=== PATIENT | male | born 1970 | race Caucasian/White ===

== ENCOUNTER 2021-12-29 13:45 | Observation (INO) ==
--- NOTE | 2021-12-29 13:59 | ED.PDOC ---
General ED Provider: Dr. URBAN HARTMANN Chief Complaint: Non-specific Complaint Stated Complaint: He was living on the streets in [place] for 3 mos . [place] [facility] ws [place] and went to a senior living. Thursday began riding a bicycle from [facility] to [place], [place] to suprise visit his son and grandson. His bike broke down . He then had to walk . He had to lay down due to the heat and fatigue and a passer- by called the police who called EMS . He has a remote hx of a blood clot to his [id number], Left fem stent 2020 . He has no medications and allergy to nicoderm Time Seen by Provider: 12/29/21 13:59 Mode of Arrival: Ambulance Information Source: Patient and EMT Exam Limitations: Other (no medical records available ) Nursing and Triage Documentation Reviewed and Agree: Yes Does patient meet sepsis criteria?: No System Inflammatory Response Syndrome: Not Applicable Sepsis Protocol: For patient's 13 years and over: Temp is 96.8 and below OR 101 and greater Pulse >90 BPM Resp >20/minute Acutely Altered Mental Status Are patient's symptoms suggestive of a new infection, such as: -Pneumonia -Skin, Soft Tissue -Endocarditis -UTI -Bone, Joint Infection -Implantable Device -Acute Abdominal Infection -Wound Infection -Meningitis -Blood Stream Catheter Infection -Unknown Review of Systems Review Of Systems Constitutional: Reports No symptoms Eyes: Reports No symptoms Ears, Nose, Mouth, Throat: Reports No symptoms Respiratory: Reports No symptoms Cardiac: Reports No symptoms GI: Reports No symptoms : Reports No symptoms Musculoskeletal: Reports Muscle pain Skin: Reports No symptoms Neurological: Reports Emotional problems Endocrine: Reports No symptoms Hematologic/Lymphatic: Reports No symptoms All Other Systems: Reviewed and Negative [facility] Medical History (Updated 12/29/21 @ 21:06 by URBAN HARTMANN) Disintegration of vascular stent Heart disease Hypercholesteremia Hyperglycemia, unspecified Pre-diabetes Family History (Updated 12/29/21 @ 18:26 by DEVIN MURCIA, RN) Mother Diabetes Social History (Updated 12/29/21 @ 18:28 by DEVIN MURCIA, RN) Smoking and tobacco status: Current every day smoker Tobacco type: cigarettes Smoking packs per day: 1 Smoking cigarettes per day: 20.0 Years smoked: 42 Smoking pack-years: 42.00 Tobacco: How many years used: 42 Quit status: has quit before Alcohol intake: never Physical Exam Physical Exam Appearance: Reports Ill-appearing and Thin Ill-appearing: Mild Pain Distress: None Eyes: Reports ANNEMARIE, EOMI and Conjunctiva clear ENT: Reports Ears normal, Nose normal and Dry mucosa Neck: Supple Respiratory: Reports Airway patent, Breath sounds clear and Breath sounds equal Cardiovascular: Reports RRR and No murmur GI/: Reports Soft and Nontender Musculoskeletal: Reports Normal strength, ROM intact and No calf tenderness; Denies Edema Skin: Reports Warm, Dry and Normal color; Denies Diaphoretic Neurological: Reports Sensation intact, Motor intact, Alert and Oriented Psychiatric: Reports Affect appropriate, Mood appropriate and Other (Denies SI or HI); Denies Depressed Interpretation EKG Interpretation Time of EKG #1: 15:00 Rate: Normal Rhythm: Sinus Ectopy: None [place]: [place] ST Segment: Normal Critical Care Note Critical Care Note Total Critical Care Time (mins): 20 Comments: repeat assessments of patient renal output , prior hx , phone call, lit review, fluids, review results , re- order to access response to treatment , place in observation Course Course Hematology/Chemistry: 12/29/21 15:14 12/29/21 18:07 Orders, Labs, Meds: Lab Review 12/29/21 12/29/21 12/29/21 15:14 15:14 16:53 WBC 10.06 RBC 4.84 Hgb 14.7 Hct 43.4 MCV 89.7 MCH 30.4 MCHC 33.9 RDW Coeff of Onesimo 13.4 Plt Count 202 Immature Gran % (Auto) 0.4 Neut % (Auto) 77.4 H Lymph % (Auto) 13.8 [place] % (Auto) 7.2 Eos % (Auto) 0.7 Baso % (Auto) 0.5 Neut # (Auto) 7.8 H Lymph # (Auto) 1.4 [place] # (Auto) 0.7 Eos # (Auto) 0.1 Baso # (Auto) 0.1 Immature Gran # (Auto) 0.0 Sodium 134.2 L Potassium 4.35 Chloride 100.3 Carbon Dioxide 24.3 Anion Gap 13.95 BUN 39.2 H Creatinine 1.69 H Estimated GFR (MDRD) 43.00 BUN/Creatinine Ratio 23.19 Glucose 152.6 H Calcium 9.64 Total Bilirubin 0.89 AST 54.7 ALT 27.9 Alkaline Phosphatase 85.8 Total Creatine Kinase 1314.3 H CK-MB (CK-2) 17.500 H* CK-MB (CK-2) % 1.3300 Troponin I < 0.012 Total Protein 8.47 H Albumin 4.76 Globulin 3.71 Albumin/Globulin Ratio 1.28 Urine Color Urine Clarity Urine pH Ur Specific [place] Urine Protein Urine Glucose (UA) Urine Ketones Urine Blood Urine Nitrite Urine Bilirubin Urine Urobilinogen Ur Leukocyte Esterase Urine Microscopic RBC Urine Microscopic WBC Ur Squamous Epith Cells Urine Bacteria Hyaline Casts Urine Mucus Urine Opiates Screen Ur Oxycodone Screen Urine Methadone Screen Ur Propoxyphene Screen Ur Barbiturates Screen U Tricyclic Antidepress Ur Phencyclidine Scrn Ur Amphetamine Screen U Methamphetamines Scrn U Benzodiazepines Scrn Urine Cocaine Screen U Cannabinoids Screen SARS CoV-2 RNA Rapid SHANNON Negative 12/29/21 12/29/21 16:58 16:58 WBC RBC Hgb Hct MCV MCH MCHC RDW Coeff of Onesimo Plt Count Immature Gran % (Auto) Neut % (Auto) Lymph % (Auto) [place] % (Auto) Eos % (Auto) Baso % (Auto) Neut # (Auto) Lymph # (Auto) [place] # (Auto) Eos # (Auto) Baso # (Auto) Immature Gran # (Auto) Sodium Potassium Chloride Carbon Dioxide Anion Gap BUN Creatinine Estimated GFR (MDRD) BUN/Creatinine Ratio Glucose Calcium Total Bilirubin AST ALT Alkaline Phosphatase Total Creatine Kinase CK-MB (CK-2) CK-MB (CK-2) % Troponin I Total Protein Albumin Globulin Albumin/Globulin Ratio Urine Color Yellow Urine Clarity Clear Urine pH 5.5 Ur Specific [place] 1.020 Urine Protein Trace H Urine Glucose (UA) Negative Urine Ketones Negative Urine Blood Trace-lysed Urine Nitrite Negative Urine Bilirubin Negative Urine Urobilinogen 0.2 Ur Leukocyte Esterase Negative Urine Microscopic RBC 5-10 Urine Microscopic WBC 2-5 Ur Squamous Epith Cells 0-2 Urine Bacteria 1+ Hyaline Casts 10-20 Urine Mucus Trace Urine Opiates Screen Negative Ur Oxycodone Screen Negative Urine Methadone Screen Negative Ur Propoxyphene Screen Negative Ur Barbiturates Screen Negative U Tricyclic Antidepress Negative Ur Phencyclidine Scrn Negative Ur Amphetamine Screen Negative U Methamphetamines Scrn Negative U Benzodiazepines Scrn Negative Urine Cocaine Screen Negative U Cannabinoids Screen Negative SARS CoV-2 RNA Rapid SHANNON Orders Category Date Time Status PLACE PATIENT OBSERVATION .TO MEDSURG (MONITORED BED ADMISSION 12/29/21 17:34 Active ) EKG-(ED ONLY) Stat CARDIO 12/29/21 14:12 Completed EKG-(IP & OP ONLY) DAILY CARDIO 12/30/21 06:00 Ordered EKG-(IP & OP ONLY) DAILY CARDIO 12/31/21 06:00 Ordered ACTIVITY .Up With Assistance CARE 12/29/21 17:39 Active CASE MANAGEMENT CONSULT ONCE CARE 12/29/21 17:37 Active INTAKE & OUTPUT Q4HR CARE 12/29/21 17:34 Active TELEMETRY MONITORING TELE CARE 12/29/21 17:36 Active VITAL SIGNS Q4HR CARE 12/29/21 17:48 Active REGULAR DIET DIETARY 12/29/21 Breakfast Ordered CBC W/ AUTO DIFF DAILY@0600 LAB 12/30/21 06:00 Ordered CBC W/ AUTO DIFF DAILY@0600 LAB 12/31/21 06:00 Ordered CBC W/ AUTO DIFF Stat LAB 12/29/21 15:14 Completed CMP [COMPREHENSIVE METABOLIC PANEL] Stat LAB 12/29/21 15:14 Completed COMPREHENSIVE METABOLIC PANEL DAILY@0600 LAB 12/30/21 06:00 Ordered COMPREHENSIVE METABOLIC PANEL DAILY@0600 LAB 12/31/21 06:00 Ordered COVID [SARS COV-2 RNA RAPID SHANNON] Stat LAB 12/29/21 16:53 Completed CPK [CREATINE KINASE] Stat LAB 12/29/21 15:14 Completed TROPONIN I Stat LAB 12/29/21 15:14 Completed URINALYSIS WITH MICROSCOPIC Stat LAB 12/29/21 16:58 Completed Acetaminophen [Tylenol] MEDS 12/29/21 17:44 Active 650 mg PO Q4H PRN Ringers Lactated Solution [Lactated Ringers] 1,000 ml MEDS 12/29/21 16:58 Discontinued IV BOLUS Ringers Lactated Solution [Lactated Ringers] 1,000 ml MEDS 12/29/21 17:25 Discontinued IV BOLUS Sodium Chloride 0.9% [Sodium Chloride] 1,000 ml MEDS 12/29/21 18:00 Active IV 250 mls/hr Sodium Chloride 0.9% [Sodium Chloride] 1,000 ml MEDS 12/29/21 17:22 Discontinued IV BOLUS Sodium Chloride 0.9% [Sodium Chloride] 1,000 ml MEDS 12/29/21 17:30 Discontinued IV BOLUS RESUSCITATION STATUS Routine OTHERS 12/29/21 17:34 Ordered Medications Generic Name Dose Route Start Last Admin Trade Name Freq PRN Reason Stop Dose Admin Acetaminophen 650 mg 12/29/21 17:44 Acetaminophen 325 Mg Tablet PO Q4H PRN Mild Pain Famotidine 20 mg 12/29/21 21:30 Famotidine 20 Mg Tablet PO QDAC MATEUS Sodium Chloride 1,000 mls @ 250 mls/hr 12/29/21 18:00 12/29/21 18:30 Sodium Chloride IV 250 mls/hr .Q4H MATEUS Administration Discontinued Medications Generic Name Dose Route Start Last Admin Trade Name Freq PRN Reason Stop Dose Admin Lactated Ringer's 1,000 mls @ 500 mls/hr 12/29/21 16:58 12/29/21 17:16 Lactated Ringers IV 12/29/21 18:57 500 mls/hr BOLUS STA Administration Sodium Chloride 1,000 mls @ 500 mls/hr 12/29/21 17:22 12/29/21 17:32 Sodium Chloride IV 12/29/21 19:21 Not Given BOLUS STA Lactated Ringer's 1,000 mls @ 1,000 mls/hr 12/29/21 17:25 12/29/21 17:29 Lactated Ringers IV 12/29/21 17:57 Not Given BOLUS STA Sodium Chloride 1,000 mls @ 1,000 mls/hr 12/29/21 17:30 12/29/21 17:32 Sodium Chloride IV 12/29/21 18:21 1,000 mls/hr BOLUS STA Administration Vital Signs: Temp Pulse Resp BP Pulse Ox 12/29/21 13:46 98.9 F 83 20 107/79 98 Spoke with [facility] hospitalist who recommended we continue to treat here and if failure to improve to call them back 4 hr repeat labs to access for renal response and for admitting here indicated improvement of GFR. Will admit pt here Discharge Plan Discharge Patient Disposition: PLACED OBSERVATION Discharge Problem: Heat exhaustion, Secondary rhabdomyolysis, Acute kidney injury Did you review [place] [employer] ADMINISTRATION TEACHER?: Not Applicable ED Provider: URBAN HARTMANN Condition: Stable Physician Progress Note: []
[2021-12-29 15:20] LABS: BASOPHILS # (AUTO) 0.1 K/uL (0-0.2); BASOPHILS % (AUTO) 0.5 % (0.0-3.0); EOSINOPHILS # (AUTO) 0.1 K/ul (0.0-0.7); EOSINOPHILS % (AUTO) 0.7 % (0.0-7.0); HEMATOCRIT 43.4 % (42.0-52.0); HEMOGLOBIN 14.7 g/dl (14.0-18.0); IMMATURE GRANULOCYTE % (AUTO) 0.4 % (0.0-5.0); LYMPHOCYTES # (AUTO) 1.4 K/uL (0.60-3.4); LYMPHOCYTES % (AUTO) 13.8 (10.0-50.0); MEAN CORPUSCULAR HEMOGLOBIN 30.4 pg (27.0-31.0); MEAN CORPUSCULAR HGB CONC 33.9 (31.8-35.4); MEAN CORPUSCULAR VOLUME 89.7 fl (80.0-94.0); MONOCYTES # (AUTO) 0.7 K/uL (0.4-2.0); MONOCYTES % (AUTO) 7.2 (0-10); NEUTROPHILS # (AUTO) 7.8 K/ul (2.0-6.9); NEUTROPHILS % (AUTO) 77.4 % (42.2-75.2); PLATELET COUNT 202 10^3/uL (140-440); RDW COEFFICIENT OF VARIATION 13.4 % (11.6-14.8); RED BLOOD COUNT 4.84 10^6/ul (4.70-6.10); WHITE BLOOD COUNT 10.06 K/ul (4.2-10.2)
[2021-12-29 15:29] LABS: ALANINE AMINOTRANSFERASE 27.9 U/L (0-50); ALBUMIN 4.76 g/dL (3.5-5.0); ALKALINE PHOSPHATASE 85.8 U/L (38-126); ASPARTATE AMINO TRANSFERASE 54.7 U/L (17-59); BILIRUBIN,TOTAL 0.89 mg/dL (0.2-1.3); BLOOD UREA NITROGEN 39.2 mg/dL (9-20); CALCIUM 9.64 mg/dL (8.4-10.2); CARBON DIOXIDE 24.3 mmol/L (22-30.0); CHLORIDE 100.3 mmol/L (98-107); CREATINE KINASE 1314.3 U/L (55-170); CREATININE 1.69 mg/dL (0.60-1.10); GLUCOSE 152.6 mg/dL (74-106); POTASSIUM 4.35 mmol/L (3.5-5.1); SODIUM 134.2 mmol/L (134.5-145); TOTAL PROTEIN 8.47 g/dL (6.3-8.2)
[2021-12-29 16:10] LABS: TROPONIN I < 0.012 ng/ml (0.0000-0.120)
[2021-12-29] MEDS ORDERED: LACTATED RINGERS 1,000 ML IV STA ×2 (16:58→17:25)
[2021-12-29 17:06] LABS: BILIRUBIN,URINE Negative (NEGATIVE); CLARITY,URINE Clear (CLEAR); COLOR,URINE Yellow (YELLOW); GLUCOSE, URINE (UA) Negative (NEGATIVE); KETONES,URINE Negative (NEGATIVE); LEUKOCYTE ESTERASE ,URINE Negative (NEGATIVE); NITRITE,URINE Negative (NEGATIVE); PH,URINE 5.5 (5-9); PROTEIN,URINE Trace (NEGATIVE); URINE, BLOOD Trace-lysed (NEGATIVE); UROBILINOGEN,URINE 0.2 (0.2)
[2021-12-29 17:21] LABS: BACTERIA,URINE 1+ (NOT PRESENT); MUCUS,URINE TRACE (NOT PRESENT); SQUAMOUS EPITHELIAL CELL,UR 0-2 (0-5)
[2021-12-29] MEDS ORDERED: SODIUM CHLORIDE 1,000 ML IV STA ×2 (17:22→17:30)
[2021-12-29] MEDS ORDERED: TYLENOL PO PRN (17:44)
[2021-12-29 18:22] LABS: BLOOD UREA NITROGEN 35.4 mg/dL (9-20); CALCIUM 8.94 mg/dL (8.4-10.2); CARBON DIOXIDE 24.8 mmol/L (22-30.0); CHLORIDE 103.9 mmol/L (98-107); CREATININE 1.26 mg/dL (0.60-1.10); GLUCOSE 111.5 mg/dL (74-106); MAGNESIUM 2.21 mg/dL (1.6-2.3); PHOSPHORUS 4.24 mg/dL (2.5-4.5); POTASSIUM 4.38 mmol/L (3.5-5.1); SODIUM 134.6 mmol/L (134.5-145); URIC ACID 6.19 mg/dL (3.5-8.5)
[2021-12-29 18:25] LABS: PARTIAL THROMBOPLASTIN TIME 22.1 SEC (23.9-40.0); PROTHROMBIN TIME 9.9 SEC (9.3-11.0)
[2021-12-29] MEDS: SODIUM CHLORIDE 1,000 ML IV SCH ×2 (18:30→22:12)
[2021-12-29 18:35] LABS: TROPONIN I < 0.012 ng/ml (0.0000-0.120)
[2021-12-29 18:36] VITALS: BMI 20.4
[2021-12-29 20:29] LABS: AMPHETAMINE SCREEN,URINE NEGATIVE (NEGATIVE); BARBITURATE SCREEN,URINE NEGATIVE (NEGATIVE); BENZODIAZEPINES SCREEN,URINE NEGATIVE (NEGATIVE); CANNABINOID SCREEN,URINE NEGATIVE (NEGATIVE); COCAIN SCREEN,URINE NEGATIVE (NEGATIVE); METHADONE URINE SCREEN NEGATIVE (NEGATIVE); METHAMPHETAMINES SCREEN,URINE NEGATIVE (NEGATIVE); OPIATE SCREEN,URINE NEGATIVE (NEGATIVE); OXYCODONE URINE SCREEN NEGATIVE (NEGATIVE); PHENCYCLIDINE SCREEN,URINE NEGATIVE (NEGATIVE); PROPOXYPHENE URINE SCREEN NEGATIVE (NEGATIVE); TRICYCLIC ANTIDEPRESSANTS URIN NEGATIVE (NEGATIVE)
--- NOTE | 2021-12-29 20:47 | PCM ---
Chief Complaint Chief Complaint: weak from riding bike since Thursday from [facility] to here on way to [place], [place] to see his son and granddaughter History of Present Illness History of Present Illness: For several months [place]living on street in [facility]. Ended up recently in BH facility in [facility] for depression and suicidal ideation. Following discharge wnt to a homeless usp. From there he started ridng his bicycle to [place] till the bike broke down. He then proceeded to walk about 2 hours till he had to lay down. A local flatbed driver callthe police who called EMS and he was brought here. On arrival he was alert and orientd . IV fluids had been started Allergies Allergies Allergy/AdvReac Type Severity Reaction Status Date / Time nicotine [From [facility]] AdvReac Rash Verified 12/29/21 18:38 [facility] Medical History (Updated 12/29/21 @ 21:06 by URBAN HARTMANN) Disintegration of vascular stent Heart disease Hypercholesteremia Hyperglycemia, unspecified Pre-diabetes Family History (Updated 12/29/21 @ 18:26 by DEVIN MURCIA, RN) Mother Diabetes Social History (Updated 12/29/21 @ 18:28 by DEVIN MURCIA, RN) Smoking and tobacco status: Current every day smoker Tobacco type: cigarettes Smoking packs per day: 1 Smoking cigarettes per day: 20.0 Years smoked: 42 Smoking pack-years: 42.00 Tobacco: How many years used: 42 Quit status: has quit before Alcohol intake: never Medications Medications: Medications Generic Name Dose Route Start Last Admin Trade Name Freq PRN Reason Stop Dose Admin Acetaminophen 650 mg 12/29/21 17:44 Acetaminophen 325 Mg Tablet PO Q4H PRN Mild Pain Sodium Chloride 1,000 mls @ 250 mls/hr 12/29/21 18:00 12/29/21 18:30 Sodium Chloride IV 250 mls/hr .Q4H MATEUS Administration Body Composition Height: 5 ft 9 in Weight: 138 lb 4 oz Body Mass Index (BMI): 20.4 Vital Signs Temperature: 97.9 F Pulse Rate: 66 Respiratory Rate: 18 Blood Pressure: 107/79 O2 Sat by Pulse Oximetry: 98 Physical Examination Appearance: Reports Ill-appearing and Thin Ill-appearing: Mild Pain Distress: None Eyes: Reports ANNEMARIE, EOMI and Conjunctiva clear ENT: Reports Ears normal, Nose normal and Dry mucosa Neck: Supple Respiratory: Reports Airway patent, Breath sounds clear and Breath sounds equal Cardiovascular: Reports RRR and No murmur GI/: Reports Soft, Nontender and No Organomegaly Musculoskeletal: Reports Normal strength, ROM intact and No calf tenderness; Denies Edema Skin: Reports Warm, Dry and Normal color; Denies Diaphoretic or Cyanotic Neurological: Reports Sensation intact, Motor intact, Alert and Oriented Psychiatric: Reports Affect appropriate, Mood appropriate and Other (denies SI or depression affecting him ) Lab/Tests/Diagnostic Imaging Lab/Tests/Diagnostic Imaging: Lab Review 12/29/21 12/29/21 12/29/21 15:14 15:14 16:53 WBC 10.06 RBC 4.84 Hgb 14.7 Hct 43.4 MCV 89.7 MCH 30.4 MCHC 33.9 RDW Coeff of Onesimo 13.4 Plt Count 202 Immature Gran % (Auto) 0.4 Neut % (Auto) 77.4 H Lymph % (Auto) 13.8 [place] % (Auto) 7.2 Eos % (Auto) 0.7 Baso % (Auto) 0.5 Neut # (Auto) 7.8 H Lymph # (Auto) 1.4 [place] # (Auto) 0.7 Eos # (Auto) 0.1 Baso # (Auto) 0.1 Immature Gran # (Auto) 0.0 PT INR APTT Sodium 134.2 L Potassium 4.35 Chloride 100.3 Carbon Dioxide 24.3 Anion Gap 13.95 BUN 39.2 H Creatinine 1.69 H Estimated GFR (MDRD) 43.00 BUN/Creatinine Ratio 23.19 Glucose 152.6 H Uric Acid Calcium 9.64 Phosphorus Magnesium Total Bilirubin 0.89 AST 54.7 ALT 27.9 Alkaline Phosphatase 85.8 Total Creatine Kinase 1314.3 H CK-MB (CK-2) 17.500 H* CK-MB (CK-2) % 1.3300 Troponin I < 0.012 Total Protein 8.47 H Albumin 4.76 Globulin 3.71 Albumin/Globulin Ratio 1.28 TSH Free T4 Urine Color Urine Clarity Urine pH Ur Specific [place] Urine Protein Urine Glucose (UA) Urine Ketones Urine Blood Urine Nitrite Urine Bilirubin Urine Urobilinogen Ur Leukocyte Esterase Urine Microscopic RBC Urine Microscopic WBC Ur Squamous Epith Cells Urine Bacteria Hyaline Casts Urine Mucus Urine Opiates Screen Ur Oxycodone Screen Urine Methadone Screen Ur Propoxyphene Screen Ur Barbiturates Screen U Tricyclic Antidepress Ur Phencyclidine Scrn Ur Amphetamine Screen U Methamphetamines Scrn U Benzodiazepines Scrn Urine Cocaine Screen U Cannabinoids Screen SARS CoV-2 RNA Rapid SHANNON Negative 12/29/21 12/29/21 12/29/21 16:58 16:58 18:07 WBC RBC Hgb Hct MCV MCH MCHC RDW Coeff of Onesimo Plt Count Immature Gran % (Auto) Neut % (Auto) Lymph % (Auto) [place] % (Auto) Eos % (Auto) Baso % (Auto) Neut # (Auto) Lymph # (Auto) [place] # (Auto) Eos # (Auto) Baso # (Auto) Immature Gran # (Auto) PT 9.9 INR 0.95 APTT 22.1 L Sodium Potassium Chloride Carbon Dioxide Anion Gap BUN Creatinine Estimated GFR (MDRD) BUN/Creatinine Ratio Glucose Uric Acid Calcium Phosphorus Magnesium Total Bilirubin AST ALT Alkaline Phosphatase Total Creatine Kinase CK-MB (CK-2) CK-MB (CK-2) % Troponin I Total Protein Albumin Globulin Albumin/Globulin Ratio TSH Free T4 Urine Color Yellow Urine Clarity Clear Urine pH 5.5 Ur Specific [place] 1.020 Urine Protein Trace H Urine Glucose (UA) Negative Urine Ketones Negative Urine Blood Trace-lysed Urine Nitrite Negative Urine Bilirubin Negative Urine Urobilinogen 0.2 Ur Leukocyte Esterase Negative Urine Microscopic RBC 5-10 Urine Microscopic WBC 2-5 Ur Squamous Epith Cells 0-2 Urine Bacteria 1+ Hyaline Casts 10-20 Urine Mucus Trace Urine Opiates Screen Negative Ur Oxycodone Screen Negative Urine Methadone Screen Negative Ur Propoxyphene Screen Negative Ur Barbiturates Screen Negative U Tricyclic Antidepress Negative Ur Phencyclidine Scrn Negative Ur Amphetamine Screen Negative U Methamphetamines Scrn Negative U Benzodiazepines Scrn Negative Urine Cocaine Screen Negative U Cannabinoids Screen Negative SARS CoV-2 RNA Rapid SHANNON 12/29/21 12/29/21 18:07 18:07 WBC RBC Hgb Hct MCV MCH MCHC RDW Coeff of Onesimo Plt Count Immature Gran % (Auto) Neut % (Auto) Lymph % (Auto) [place] % (Auto) Eos % (Auto) Baso % (Auto) Neut # (Auto) Lymph # (Auto) [place] # (Auto) Eos # (Auto) Baso # (Auto) Immature Gran # (Auto) PT INR APTT Sodium 134.6 Potassium 4.38 Chloride 103.9 Carbon Dioxide 24.8 Anion Gap 10.28 BUN 35.4 H Creatinine 1.26 H Estimated GFR (MDRD) 61.00 BUN/Creatinine Ratio 28.09 Glucose 111.5 H Uric Acid 6.19 Calcium 8.94 Phosphorus 4.24 Magnesium 2.21 Total Bilirubin AST ALT Alkaline Phosphatase Total Creatine Kinase 1097.0 H CK-MB (CK-2) 14.500 H* CK-MB (CK-2) % 1.3200 Troponin I < 0.012 Total Protein Albumin Globulin Albumin/Globulin Ratio TSH 1.140 Free T4 0.92 Urine Color Urine Clarity Urine pH Ur Specific [place] Urine Protein Urine Glucose (UA) Urine Ketones Urine Blood Urine Nitrite Urine Bilirubin Urine Urobilinogen Ur Leukocyte Esterase Urine Microscopic RBC Urine Microscopic WBC Ur Squamous Epith Cells Urine Bacteria Hyaline Casts Urine Mucus Urine Opiates Screen Ur Oxycodone Screen Urine Methadone Screen Ur Propoxyphene Screen Ur Barbiturates Screen U Tricyclic Antidepress Ur Phencyclidine Scrn Ur Amphetamine Screen U Methamphetamines Scrn U Benzodiazepines Scrn Urine Cocaine Screen U Cannabinoids Screen SARS CoV-2 RNA Rapid SHANNON Orders Category Date Time Status PLACE PATIENT OBSERVATION .TO MEDSURG (MONITORED BED ADMISSION 12/29/21 17:34 Active ) EKG-(ED ONLY) Stat CARDIO 12/29/21 14:12 Completed EKG-(IP & OP ONLY) DAILY CARDIO 12/30/21 06:00 Ordered EKG-(IP & OP ONLY) DAILY CARDIO 12/31/21 06:00 Ordered ACTIVITY .Up With Assistance CARE 12/29/21 17:39 Active CASE MANAGEMENT CONSULT ONCE CARE 12/29/21 17:37 Active INTAKE & OUTPUT Q4HR CARE 12/29/21 17:34 Active TELEMETRY MONITORING TELE CARE 12/29/21 17:36 Active VITAL SIGNS Q4HR CARE 12/29/21 17:48 Active REGULAR DIET DIETARY 12/29/21 Breakfast Ordered BMP [BASIC METABOLIC PANEL] Stat LAB 12/29/21 18:07 Completed CBC W/ AUTO DIFF DAILY@0600 LAB 12/30/21 06:00 Ordered CBC W/ AUTO DIFF DAILY@0600 LAB 12/31/21 06:00 Ordered CBC W/ AUTO DIFF Stat LAB 12/29/21 15:14 Completed CMP [COMPREHENSIVE METABOLIC PANEL] Stat LAB 12/29/21 15:14 Completed COMPREHENSIVE METABOLIC PANEL DAILY@0600 LAB 12/30/21 06:00 Ordered COMPREHENSIVE METABOLIC PANEL DAILY@0600 LAB 12/31/21 06:00 Ordered COVID [SARS COV-2 RNA RAPID SHANNON] Stat LAB 12/29/21 16:53 Completed CPK [CREATINE KINASE] Stat LAB 12/29/21 15:14 Completed CPK [CREATINE KINASE] Stat LAB 12/29/21 18:07 Completed FREE T4 (FREE THYROXINE) Stat LAB 12/29/21 18:07 Completed MAGNESIUM Stat LAB 12/29/21 18:07 Completed PHOSPHORUS Stat LAB 12/29/21 18:07 Completed PT WITH INR Stat LAB 12/29/21 18:07 Completed PTT [PARTIAL THROMBOPLASTIN TIME] Stat LAB 12/29/21 18:07 Completed TROPONIN I Stat LAB 12/29/21 15:14 Completed TROPONIN I Stat LAB 12/29/21 18:07 Completed TSH [THYROID STIMULATING HORMONE] Stat LAB 12/29/21 18:07 Completed URIC ACID Stat LAB 12/29/21 18:07 Completed URINALYSIS WITH MICROSCOPIC Stat LAB 12/29/21 16:58 Completed URINE DRUG SCREEN (RAPID FOR ED) [DRUG SCREEN, URINE, LAB 12/29/21 20:15 Ordered RAPID] Stat Acetaminophen [Tylenol] MEDS 12/29/21 17:44 Active 650 mg PO Q4H PRN Ringers Lactated Solution [Lactated Ringers] 1,000 ml MEDS 12/29/21 16:58 Discontinued IV BOLUS Ringers Lactated Solution [Lactated Ringers] 1,000 ml MEDS 12/29/21 17:25 Discontinued IV BOLUS Sodium Chloride 0.9% [Sodium Chloride] 1,000 ml MEDS 12/29/21 18:00 Active IV 250 mls/hr Sodium Chloride 0.9% [Sodium Chloride] 1,000 ml MEDS 12/29/21 17:22 Discontinued IV BOLUS Sodium Chloride 0.9% [Sodium Chloride] 1,000 ml MEDS 12/29/21 17:30 Discontinued IV BOLUS RESUSCITATION STATUS Routine OTHERS 12/29/21 17:34 Ordered Medications Generic Name Dose Route Start Last Admin Trade Name Freq PRN Reason Stop Dose Admin Acetaminophen 650 mg 12/29/21 17:44 Acetaminophen 325 Mg Tablet PO Q4H PRN Mild Pain Sodium Chloride 1,000 mls @ 250 mls/hr 12/29/21 18:00 12/29/21 18:30 Sodium Chloride IV 250 mls/hr .Q4H MATEUS Administration Discontinued Medications Generic Name Dose Route Start Last Admin Trade Name Steff PRN Reason Stop Dose Admin Lactated Ringer's 1,000 mls @ 500 mls/hr 12/29/21 16:58 12/29/21 17:16 Lactated Ringers IV 12/29/21 18:57 500 mls/hr BOLUS STA Administration Sodium Chloride 1,000 mls @ 500 mls/hr 12/29/21 17:22 12/29/21 17:32 Sodium Chloride IV 12/29/21 19:21 Not Given BOLUS STA Lactated Ringer's 1,000 mls @ 1,000 mls/hr 12/29/21 17:25 12/29/21 17:29 Lactated Ringers IV 12/29/21 17:57 Not Given BOLUS STA Sodium Chloride 1,000 mls @ 1,000 mls/hr 12/29/21 17:30 12/29/21 17:32 Sodium Chloride IV 12/29/21 18:21 1,000 mls/hr BOLUS STA Administration Assessment (1) Heat exhaustion: Status: Acute Code(s): T67.5XXA - Heat exhaustion, unspecified, initial encounter SNOMED Code(s): 38049282 (2) Secondary rhabdomyolysis: Status: Acute Code(s): M62.82 - Rhabdomyolysis SNOMED Code(s): 910586205 (3) Acute kidney injury: Status: Acute Code(s): N17.9 - Acute kidney failure, unspecified SNOMED Code(s): 34021044 (4) Hyperglycemia, unspecified: Status: Acute Code(s): R73.9 - Hyperglycemia, unspecified SNOMED Code(s): 28340937 Plan Plan: 1. Admit to observation - pt agrees repeat labs are pending 2.For heat exposure / exhaustion - IV fluids , rest 3.For Rhabdomyolysis - IVF ,follow labs 4.For SIRISHA - IVF , follow labs, Dr Dale will adjust IVF , AM labs 5.DVT prevention - Dr Dale will order heparin SQ 6.Homeless person - field services analyst / case management consult 7 For GI - famotidine 20 mg po daily 8.For hyperglycemia - Dr Dale will address [facility] Medical History (Updated 12/29/21 @ 21:06 by URBAN HARTMANN) Disintegration of vascular stent Heart disease Hypercholesteremia Hyperglycemia, unspecified Pre-diabetes Family History (Updated 12/29/21 @ 18:26 by DEVIN MURCIA, RN) Mother Diabetes Social History (Updated 12/29/21 @ 18:28 by DEVIN MURCIA, RN) Smoking and tobacco status: Current every day smoker Tobacco type: cigarettes Smoking packs per day: 1 Smoking cigarettes per day: 20.0 Years smoked: 42 Smoking pack-years: 42.00 Tobacco: How many years used: 42 Quit status: has quit before Alcohol intake: never Additional Medical History: 2019 had clots in his right kidney placed on heparin drip later discharged maybe was to be on blood thinners but not on them since
[2021-12-29] MEDS: PEPCID PO SCH (22:00)
[2021-12-30] MEDS: SODIUM CHLORIDE 1,000 ML IV SCH ×4 (02:11→18:44)
[2021-12-30 05:11] LABS: BASOPHILS # (AUTO) 0.1 K/uL (0-0.2); BASOPHILS % (AUTO) 0.8 % (0.0-3.0); EOSINOPHILS # (AUTO) 0.3 K/ul (0.0-0.7); EOSINOPHILS % (AUTO) 3.9 % (0.0-7.0); HEMATOCRIT 32.8 % (42.0-52.0); HEMOGLOBIN 11.1 g/dl (14.0-18.0); IMMATURE GRANULOCYTE % (AUTO) 0.2 % (0.0-5.0); LYMPHOCYTES # (AUTO) 2.4 K/uL (0.60-3.4); LYMPHOCYTES % (AUTO) 37.3 (10.0-50.0); MEAN CORPUSCULAR HEMOGLOBIN 30.7 pg (27.0-31.0); MEAN CORPUSCULAR HGB CONC 33.8 (31.8-35.4); MEAN CORPUSCULAR VOLUME 90.6 fl (80.0-94.0); MONOCYTES # (AUTO) 0.7 K/uL (0.4-2.0); MONOCYTES % (AUTO) 10.4 (0-10); NEUTROPHILS % (AUTO) 47.4 % (42.2-75.2); PLATELET COUNT 142 10^3/uL (140-440); RDW COEFFICIENT OF VARIATION 13.5 % (11.6-14.8); RED BLOOD COUNT 3.62 10^6/ul (4.70-6.10); WHITE BLOOD COUNT 6.35 K/ul (4.2-10.2)
[2021-12-30 05:23] LABS: ALANINE AMINOTRANSFERASE 18.9 U/L (0-50); ALBUMIN 3.19 g/dL (3.5-5.0); ALKALINE PHOSPHATASE 59.9 U/L (38-126); ASPARTATE AMINO TRANSFERASE 35.7 U/L (17-59); BILIRUBIN,TOTAL 0.35 mg/dL (0.2-1.3); BLOOD UREA NITROGEN 17.9 mg/dL (9-20); CALCIUM 8.02 mg/dL (8.4-10.2); CARBON DIOXIDE 25.5 mmol/L (22-30.0); CHLORIDE 109.5 mmol/L (98-107); CREATININE 0.8 mg/dL (0.60-1.10); GLUCOSE 91.2 mg/dL (74-106); POTASSIUM 4.34 mmol/L (3.5-5.1); SODIUM 136.5 mmol/L (134.5-145); TOTAL PROTEIN 6.02 g/dL (6.3-8.2)
[2021-12-30] MEDS: PEPCID PO SCH (05:51)
[2021-12-30 07:44] LABS: CREATINE KINASE 875.7 U/L (55-170)
[2021-12-30 08:03] LABS: TROPONIN I < 0.012 ng/ml (0.0000-0.120)
[2021-12-31] MEDS: SODIUM CHLORIDE 1,000 ML IV SCH ×4 (01:08→20:40)
[2021-12-31 05:03] LABS: BASOPHILS # (AUTO) 0.1 K/uL (0-0.2); BASOPHILS % (AUTO) 1.1 % (0.0-3.0); EOSINOPHILS # (AUTO) 0.3 K/ul (0.0-0.7); HEMATOCRIT 34.1 % (42.0-52.0); HEMOGLOBIN 11.4 g/dl (14.0-18.0); IMMATURE GRANULOCYTE % (AUTO) 0.6 % (0.0-5.0); LYMPHOCYTES # (AUTO) 2.3 K/uL (0.60-3.4); LYMPHOCYTES % (AUTO) 42.3 (10.0-50.0); MEAN CORPUSCULAR HEMOGLOBIN 30.5 pg (27.0-31.0); MEAN CORPUSCULAR HGB CONC 33.4 (31.8-35.4); MEAN CORPUSCULAR VOLUME 91.2 fl (80.0-94.0); MONOCYTES # (AUTO) 0.5 K/uL (0.4-2.0); MONOCYTES % (AUTO) 9.1 (0-10); NEUTROPHILS # (AUTO) 2.3 K/ul (2.0-6.9); NEUTROPHILS % (AUTO) 41.9 % (42.2-75.2); PLATELET COUNT 148 10^3/uL (140-440); RDW COEFFICIENT OF VARIATION 13.1 % (11.6-14.8); RED BLOOD COUNT 3.74 10^6/ul (4.70-6.10); WHITE BLOOD COUNT 5.39 K/ul (4.2-10.2)
[2021-12-31 05:16] LABS: ALANINE AMINOTRANSFERASE 30.3 U/L (0-50); ALBUMIN 3.31 g/dL (3.5-5.0); ALKALINE PHOSPHATASE 60.8 U/L (38-126); ASPARTATE AMINO TRANSFERASE 37.9 U/L (17-59); BILIRUBIN,TOTAL 0.44 mg/dL (0.2-1.3); CALCIUM 8.43 mg/dL (8.4-10.2); CARBON DIOXIDE 23.9 mmol/L (22-30.0); CHLORIDE 112.5 mmol/L (98-107); CREATININE 0.73 mg/dL (0.60-1.10); GLUCOSE 87.1 mg/dL (74-106); POTASSIUM 4.37 mmol/L (3.5-5.1); SODIUM 138.8 mmol/L (134.5-145); TOTAL PROTEIN 6.16 g/dL (6.3-8.2)
[2021-12-31] MEDS: PEPCID PO SCH (05:32)
[2021-12-31 05:49] LABS: CREATINE KINASE 507.5 U/L (55-170)
[2021-12-31 06:24] LABS: CREATINE KINASE MB 6.3 ng/ml (0.0-2.38)
--- NOTE | 2021-12-31 06:34 | PCM.PROG ---
Date Seen by Provider: 12/30/21 Time Seen by Provider: 10:00 Subjective: CC - Fatigue, muscle pains. Admit 12/29 with heat exhaustion, acute rhabdo due to extensive travel by bike/foot. Mod. SIRISHA. Homeless. Traveling from [place] to [place] to see family. Has no means of transportation, no money. Hoping to be d/c with a bus ticket courtesy of the hospital. Objective: Vitals: T=97.0 F, P=45, R=16, ZW=680/73, SPO2=95 HEENT: [WNL. Poor dentition.] Neck: [supple] Lungs: [clear] CVS: [RRR] Abdomen: [soft] Extremities: [Intact, no focal pain.] Neurological: [Intact] Skin: [WNL] Lab/Tests/Diagnostic Imaging: [See report.] (1) Heat exhaustion: Status: Acute Code(s): T67.5XXA - Heat exhaustion, unspecified, initial encounter SNOMED Code(s): 36072825 Assessment: This has resolved with rest, IVF, and a temperature controlled environment. (2) Secondary rhabdomyolysis: Status: Acute Code(s): M62.82 - Rhabdomyolysis SNOMED Code(s): 378277003 Assessment: Resolving. CK total 875, coming down. (3) Acute kidney injury: Status: Acute Code(s): N17.9 - Acute kidney failure, unspecified SNOMED Code(s): 27049306 Assessment: Resolving. BUN 13, creat. 0.7 Plan: Continue IVF, daily labs. Should be able to be d/c tomorrow, just need to address some social issues.
--- NOTE | 2021-12-31 15:06 | PCM.PROG ---
Date Seen by Provider: 12/31/21 Time Seen by Provider: 15:03 Subjective: pt improving, wants a bus ticket to [place] Objective: Vitals: T=98.0 F, P=50, R=18, OK=081/75, SPO2=97 HEENT: []conjunctiva clear Neck: []supple Lungs: [] no respiratory distress CVS: [] Abdomen: []nondistended Extremities: []restless left leg for months Neurological: []alert and oriented Skin: []pink Lab/Tests/Diagnostic Imaging: [] ekg nsr 48 no ectopy, cpk 507 (1) Heat exhaustion: Status: Acute Code(s): T67.5XXA - Heat exhaustion, unspecified, initial encounter SNOMED Code(s): 48445563 (2) Secondary rhabdomyolysis: Status: Acute Code(s): M62.82 - Rhabdomyolysis SNOMED Code(s): 337467616 (3) Acute kidney injury: Status: Acute Code(s): N17.9 - Acute kidney failure, unspecified SNOMED Code(s): 01721328 Plan: start requip, continue iv ns 150cc/hr, discharge in the am care to Dr Waggoner at 19:00
[2021-12-31] MEDS ORDERED: REQUIP PO SCH (21:00)
[2022-01-01] MEDS: SODIUM CHLORIDE 1,000 ML IV SCH (03:02)
[2022-01-01 05:07] LABS: BASOPHILS # (AUTO) 0.1 K/uL (0-0.2); BASOPHILS % (AUTO) 1.2 % (0.0-3.0); EOSINOPHILS # (AUTO) 0.4 K/ul (0.0-0.7); EOSINOPHILS % (AUTO) 6.1 % (0.0-7.0); HEMOGLOBIN 11.8 g/dl (14.0-18.0); IMMATURE GRANULOCYTE % (AUTO) 0.3 % (0.0-5.0); LYMPHOCYTES # (AUTO) 2.3 K/uL (0.60-3.4); LYMPHOCYTES % (AUTO) 38.8 (10.0-50.0); MEAN CORPUSCULAR HEMOGLOBIN 30.6 pg (27.0-31.0); MEAN CORPUSCULAR HGB CONC 33.7 (31.8-35.4); MEAN CORPUSCULAR VOLUME 90.7 fl (80.0-94.0); MONOCYTES # (AUTO) 0.6 K/uL (0.4-2.0); MONOCYTES % (AUTO) 9.8 (0-10); NEUTROPHILS # (AUTO) 2.6 K/ul (2.0-6.9); NEUTROPHILS % (AUTO) 43.8 % (42.2-75.2); PLATELET COUNT 159 10^3/uL (140-440); RDW COEFFICIENT OF VARIATION 12.9 % (11.6-14.8); RED BLOOD COUNT 3.86 10^6/ul (4.70-6.10); WHITE BLOOD COUNT 6.03 K/ul (4.2-10.2)
[2022-01-01 05:08] VITALS: BP 143/88; TEMP 97.6
[2022-01-01 05:18] LABS: ALANINE AMINOTRANSFERASE 34.7 U/L (0-50); ALBUMIN 3.5 g/dL (3.5-5.0); ALKALINE PHOSPHATASE 67.5 U/L (38-126); ASPARTATE AMINO TRANSFERASE 32.8 U/L (17-59); BILIRUBIN,TOTAL 0.25 mg/dL (0.2-1.3); BLOOD UREA NITROGEN 12.1 mg/dL (9-20); CALCIUM 8.76 mg/dL (8.4-10.2); CHLORIDE 109.5 mmol/L (98-107); CREATININE 0.82 mg/dL (0.60-1.10); GLUCOSE 93.5 mg/dL (74-106); POTASSIUM 4.23 mmol/L (3.5-5.1); SODIUM 139.4 mmol/L (134.5-145); TOTAL PROTEIN 6.43 g/dL (6.3-8.2)
[2022-01-01] MEDS: PEPCID PO SCH (05:36)
[2022-01-01 07:24] LABS: CREATINE KINASE 261.6 U/L (55-170)
[2022-01-01 07:48] LABS: CREATINE KINASE MB 3.08 ng/ml (0.0-2.38)
--- NOTE | 2022-01-01 09:43 | PCM.DC ---
Final Diagnosis: Rhabdomyolysis - resolved. Acute Kidney Injury - resolved. Heat Exhaustion - resolved. Date of Admit - 12/30/2021 Date of Discharge - 01/01/2022 Physical Exam Appearance: Well-appearing Ill-appearing: None Pain Distress: None ENT: Oropharynx normal Neck: Supple Respiratory: Airway patent and Breath sounds clear Cardiovascular: RRR and Pulses normal GI/: Soft and Nontender Musculoskeletal: Normal strength and ROM intact Skin: Warm and Dry Neurological: Sensation intact, Motor intact and Alert Psychiatric: Affect appropriate and Mood appropriate (1) Heat exhaustion: Status: Acute Code(s): T67.5XXA - Heat exhaustion, unspecified, initial encounter SNOMED Code(s): 92151721 (2) Secondary rhabdomyolysis: Status: Acute Code(s): M62.82 - Rhabdomyolysis SNOMED Code(s): 217452803 (3) Acute kidney injury: Status: Acute Code(s): N17.9 - Acute kidney failure, unspecified SNOMED Code(s): 49760939 Reason for Hospitalization: Acute rhabdo due to muscle injury from extensive travel by foot in the summertime. Prognosis/Condition at Discharge: Good. Medications at Discharge: None Lab/Diagnostics: Laboratory Tests 12/29/21 12/29/21 12/29/21 15:14 15:14 16:53 WBC 10.06 RBC 4.84 Hgb 14.7 Hct 43.4 MCV 89.7 MCH 30.4 MCHC 33.9 RDW Coeff of Ones[place] 13.4 Plt Count 202 Immature Gran % (Auto) 0.4 Neut % (Auto) 77.4 H Lymph % (Auto) 13.8 [place] % (Auto) 7.2 Eos % (Auto) 0.7 Baso % (Auto) 0.5 Neut # (Auto) 7.8 H Lymph # (Auto) 1.4 [place] # (Auto) 0.7 Eos # (Auto) 0.1 Baso # (Auto) 0.1 Immature Gran # (Auto) 0.0 PT INR APTT Sodium 134.2 L Potassium 4.35 Chloride 100.3 Carbon Dioxide 24.3 Anion Gap 13.95 BUN 39.2 H Creatinine 1.69 H Estimated GFR (MDRD) 43.00 BUN/Creatinine Ratio 23.19 Glucose 152.6 H Uric Acid Calcium 9.64 Phosphorus Magnesium Total Bilirubin 0.89 AST 54.7 ALT 27.9 Alkaline Phosphatase 85.8 Total Creatine Kinase 1314.3 H CK-MB (CK-2) 17.500 H* CK-MB (CK-2) % 1.3300 Troponin I < 0.012 Total Protein 8.47 H Albumin 4.76 Globulin 3.71 Albumin/Globulin Ratio 1.28 TSH Free T4 Urine Color Urine Clarity Urine pH Ur Specific [place] Urine Protein Urine Glucose (UA) Urine Ketones Urine Blood Urine Nitrite Urine Bilirubin Urine Urobilinogen Ur Leukocyte Esterase Urine Microscopic RBC Urine Microscopic WBC Ur Squamous Epith Cells Urine Bacteria Hyaline Casts Urine Mucus Urine Opiates Screen Ur Oxycodone Screen Urine Methadone Screen Ur Propoxyphene Screen Ur Barbiturates Screen U Tricyclic Antidepress Ur Phencyclidine Scrn Ur Amphetamine Screen U Methamphetamines Scrn U Benzodiazepines Scrn Urine Cocaine Screen U Cannabinoids Screen SARS CoV-2 RNA Rapid SHANNON Negative 12/29/21 12/29/21 12/29/21 16:58 16:58 18:07 WBC RBC Hgb Hct MCV MCH MCHC RDW Coeff of [place]es[place] Plt Count Immature Gran % (Auto) Neut % (Auto) Lymph % (Auto) [place] % (Auto) Eos % (Auto) Baso % (Auto) Neut # (Auto) Lymph # (Auto) [place] # (Auto) Eos # (Auto) Baso # (Auto) Immature Gran # (Auto) PT 9.9 INR 0.95 APTT 22.1 L Sodium Potassium Chloride Carbon Dioxide Anion Gap BUN Creatinine Estimated GFR (MDRD) BUN/Creatinine Ratio Glucose Uric Acid Calcium Phosphorus Magnesium Total Bilirubin AST ALT Alkaline Phosphatase Total Creatine Kinase CK-MB (CK-2) CK-MB (CK-2) % Troponin I Total Protein Albumin Globulin Albumin/Globulin Ratio TSH Free T4 Urine Color Yellow Urine Clarity Clear Urine pH 5.5 Ur Specific [place] 1.020 Urine Protein Trace H Urine Glucose (UA) Negative Urine Ketones Negative Urine Blood Trace-lysed Urine Nitrite Negative Urine Bilirubin Negative Urine Urobilinogen 0.2 Ur Leukocyte Esterase Negative Urine Microscopic RBC 5-10 Urine Microscopic WBC 2-5 Ur Squamous Epith Cells 0-2 Urine Bacteria 1+ Hyaline Casts 10-20 Urine Mucus Trace Urine Opiates Screen Negative Ur Oxycodone Screen Negative Urine Methadone Screen Negative Ur Propoxyphene Screen Negative Ur Barbiturates Screen Negative U Tricyclic Antidepress Negative Ur Phencyclidine Scrn Negative Ur Amphetamine Screen Negative U Methamphetamines Scrn Negative U Benzodiazepines Scrn Negative Urine Cocaine Screen Negative U Cannabinoids Screen Negative SARS CoV-2 RNA Rapid SHANNON 12/29/21 12/29/21 12/30/21 18:07 18:07 04:45 WBC 6.35 RBC 3.62 L Hgb 11.1 L D Hct 32.8 L D MCV 90.6 MCH 30.7 MCHC 33.8 RDW Coeff of Onesimo 13.5 Plt Count 142 Immature Gran % (Auto) 0.2 Neut % (Auto) 47.4 Lymph % (Auto) 37.3 [place] % (Auto) 10.4 H Eos % (Auto) 3.9 Baso % (Auto) 0.8 Neut # (Auto) 3.0 Lymph # (Auto) 2.4 [place] # (Auto) 0.7 Eos # (Auto) 0.3 Baso # (Auto) 0.1 Immature Gran # (Auto) 0.0 PT INR APTT Sodium 134.6 Potassium 4.38 Chloride 103.9 Carbon Dioxide 24.8 Anion Gap 10.28 BUN 35.4 H Creatinine 1.26 H Estimated GFR (MDRD) 61.00 BUN/Creatinine Ratio 28.09 Glucose 111.5 H Uric Acid 6.19 Calcium 8.94 Phosphorus 4.24 Magnesium 2.21 Total Bilirubin AST ALT Alkaline Phosphatase Total Creatine Kinase 1097.0 H CK-MB (CK-2) 14.500 H* CK-MB (CK-2) % 1.3200 Troponin I < 0.012 Total Protein Albumin Globulin Albumin/Globulin Ratio TSH 1.140 Free T4 0.92 Urine Color Urine Clarity Urine pH Ur Specific [place] Urine Protein Urine Glucose (UA) Urine Ketones Urine Blood Urine Nitrite Urine Bilirubin Urine Urobilinogen Ur Leukocyte Esterase Urine Microscopic RBC Urine Microscopic WBC Ur Squamous Epith Cells Urine Bacteria Hyaline Casts Urine Mucus Urine Opiates Screen Ur Oxycodone Screen Urine Methadone Screen Ur Propoxyphene Screen Ur Barbiturates Screen U Tricyclic Antidepress Ur Phencyclidine Scrn Ur Amphetamine Screen U Methamphetamines Scrn U Benzodiazepines Scrn Urine Cocaine Screen U Cannabinoids Screen SARS CoV-2 RNA Rapid SHANNON 12/30/21 12/30/21 12/31/21 04:45 04:45 04:52 WBC RBC Hgb Hct MCV MCH MCHC RDW Coeff of Ones[place] Plt Count Immature Gran % (Auto) Neut % (Auto) Lymph % (Auto) [place] % (Auto) Eos % (Auto) Baso % (Auto) Neut # (Auto) Lymph # (Auto) [place] # (Auto) Eos # (Auto) Baso # (Auto) Immature Gran # (Auto) PT INR APTT Sodium 136.5 Potassium 4.34 Chloride 109.5 H Carbon Dioxide 25.5 Anion Gap 5.84 BUN 17.9 Creatinine 0.80 Estimated GFR (MDRD) 102.00 BUN/Creatinine Ratio 22.37 Glucose 91.2 Uric Acid Calcium 8.02 L Phosphorus Magnesium Total Bilirubin 0.35 AST 35.7 ALT 18.9 Alkaline Phosphatase 59.9 D Total Creatine Kinase 875.7 H 507.5 H CK-MB (CK-2) 11.000 H* 6.300 H* CK-MB (CK-2) % 1.2500 1.2400 Troponin I < 0.012 Total Protein 6.02 L Albumin 3.19 L Globulin 2.83 Albumin/Globulin Ratio 1.12 TSH Free T4 Urine Color Urine Clarity Urine pH Ur Specific [place] Urine Protein Urine Glucose (UA) Urine Ketones Urine Blood Urine Nitrite Urine Bilirubin Urine Urobilinogen Ur Leukocyte Esterase Urine Microscopic RBC Urine Microscopic WBC Ur Squamous Epith Cells Urine Bacteria Hyaline Casts Urine Mucus Urine Opiates Screen Ur Oxycodone Screen Urine Methadone Screen Ur Propoxyphene Screen Ur Barbiturates Screen U Tricyclic Antidepress Ur Phencyclidine Scrn Ur Amphetamine Screen U Methamphetamines Scrn U Benzodiazepines Scrn Urine Cocaine Screen U Cannabinoids Screen SARS CoV-2 RNA Rapid SHANNON 12/31/21 12/31/21 01/01/22 04:57 04:57 04:47 WBC 5.39 6.03 RBC 3.74 L 3.86 L Hgb 11.4 L 11.8 L Hct 34.1 L 35.0 L MCV 91.2 90.7 MCH 30.5 30.6 MCHC 33.4 33.7 RDW Coeff of Ones[place] 13.1 12.9 Plt Count 148 159 Immature Gran % (Auto) 0.6 0.3 Neut % (Auto) 41.9 L 43.8 Lymph % (Auto) 42.3 38.8 [place] % (Auto) 9.1 9.8 Eos % (Auto) 5.0 6.1 Baso % (Auto) 1.1 1.2 Neut # (Auto) 2.3 2.6 Lymph # (Auto) 2.3 2.3 [place] # (Auto) 0.5 0.6 Eos # (Auto) 0.3 0.4 Baso # (Auto) 0.1 0.1 Immature Gran # (Auto) 0.0 0.0 PT INR APTT Sodium 138.8 Potassium 4.37 Chloride 112.5 H Carbon Dioxide 23.9 Anion Gap 6.77 BUN 13.0 Creatinine 0.73 Estimated GFR (MDRD) 114.00 BUN/Creatinine Ratio 17.80 Glucose 87.1 Uric Acid Calcium 8.43 Phosphorus Magnesium Total Bilirubin 0.44 AST 37.9 ALT 30.3 Alkaline Phosphatase 60.8 Total Creatine Kinase CK-MB (CK-2) CK-MB (CK-2) % Troponin I Total Protein 6.16 L Albumin 3.31 L Globulin 2.85 Albumin/Globulin Ratio 1.16 TSH Free T4 Urine Color Urine Clarity Urine pH Ur Specific [place] Urine Protein Urine Glucose (UA) Urine Ketones Urine Blood Urine Nitrite Urine Bilirubin Urine Urobilinogen Ur Leukocyte Esterase Urine Microscopic RBC Urine Microscopic WBC Ur Squamous Epith Cells Urine Bacteria Hyaline Casts Urine Mucus Urine Opiates Screen Ur Oxycodone Screen Urine Methadone Screen Ur Propoxyphene Screen Ur Barbiturates Screen U Tricyclic Antidepress Ur Phencyclidine Scrn Ur Amphetamine Screen U Methamphetamines Scrn U Benzodiazepines Scrn Urine Cocaine Screen U Cannabinoids Screen SARS CoV-2 RNA Rapid SHANNON 01/01/22 01/01/22 04:47 04:47 WBC RBC Hgb Hct MCV MCH MCHC RDW Coeff of Onesimo Plt Count Immature Gran % (Auto) Neut % (Auto) Lymph % (Auto) [place] % (Auto) Eos % (Auto) Baso % (Auto) Neut # (Auto) Lymph # (Auto) [place] # (Auto) Eos # (Auto) Baso # (Auto) Immature Gran # (Auto) PT INR APTT Sodium 139.4 Potassium 4.23 Chloride 109.5 H Carbon Dioxide 27.0 Anion Gap 7.13 BUN 12.1 Creatinine 0.82 Estimated GFR (MDRD) 99.00 BUN/Creatinine Ratio 14.75 Glucose 93.5 Uric Acid Calcium 8.76 Phosphorus Magnesium Total Bilirubin 0.25 AST 32.8 ALT 34.7 Alkaline Phosphatase 67.5 Total Creatine Kinase 261.6 H CK-MB (CK-2) 3.080 H CK-MB (CK-2) % 1.1700 Troponin I Total Protein 6.43 Albumin 3.50 Globulin 2.93 Albumin/Globulin Ratio 1.19 TSH Free T4 Urine Color Urine Clarity Urine pH Ur Specific [place] Urine Protein Urine Glucose (UA) Urine Ketones Urine Blood Urine Nitrite Urine Bilirubin Urine Urobilinogen Ur Leukocyte Esterase Urine Microscopic RBC Urine Microscopic WBC Ur Squamous Epith Cells Urine Bacteria Hyaline Casts Urine Mucus Urine Opiates Screen Ur Oxycodone Screen Urine Methadone Screen Ur Propoxyphene Screen Ur Barbiturates Screen U Tricyclic Antidepress Ur Phencyclidine Scrn Ur Amphetamine Screen U Methamphetamines Scrn U Benzodiazepines Scrn Urine Cocaine Screen U Cannabinoids Screen SARS CoV-2 RNA Rapid SHANNON Education Provided to Patient and Family: Per event staff member Follow-ups: With PCP one week. Discharge Disposition: Home Hospital Course: 51 y/o male admit with acute rhabdo due to extensive travel by foot outside in the hot summer sun. Developed SIRISHA from dehydration and heat exhaustion. Treatment with IV fluids and rest resolved all issues. Refer to labs. CPK nearly normal, BUN 12, creatinine 0.8. Patient asked to be discharged, feels well and ready for travel. Plan: Patient will be d/c and arrangements are being made for a bus ticket to [place], his final destination. This discharge based on a [id number] exam and took 30 min.
== END 2022-01-01 14:59 | disposition home or self-care (01) ==
LOC: ED 13:45 → MEDSURG A 13:45
PROVIDERS: ADMIT Emergency Medicine; ATTEND Emergency Medicine
DX: Z59.00 Homelessness unspecified; R73.9 Hyperglycemia, unspecified; Y99.9 Unspecified external cause status; Z86.718 Personal history of other venous thrombosis and embolism; Z59.9 Problem related to housing and economic circumstances, unspecified; Z79.1 Long term (current) use of non-steroidal anti-inflammatories (NSAID); Z51.81 Encounter for therapeutic drug level monitoring; Z79.899 Other long term (current) drug therapy; Z20.822 Contact with and (suspected) exposure to COVID-19; M62.82 Rhabdomyolysis; N17.9 Acute kidney failure, unspecified; F17.210 Nicotine dependence, cigarettes, uncomplicated; Y93.55 Activity, bike riding; E78.00 Pure hypercholesterolemia, unspecified; R41.82 Altered mental status, unspecified; T67.5XXA Heat exhaustion, unspecified, initial encounter; X30.XXXA Exposure to excessive natural heat, initial encounter; Y92.413 State road as the place of occurrence of the external cause